=== PATIENT | female | born 1975 | race Caucasian/White ===

== ENCOUNTER → 2017-07-23 07:21 | Outpatient (CLI) | payer OTHER, SELFPAY | PROVIDERS: Family Provider Family Medicine; PCP Family Medicine; Visit Provider Surgery | DX: R94.6 Abnormal results of thyroid function studies (principal) | CPT/HCPCS: 36415; 84443 ==

== ENCOUNTER → 2017-07-24 07:18 | Outpatient (CLI) | payer OTHER, SELFPAY | PROVIDERS: Family Provider Family Medicine; PCP Family Medicine; Visit Provider Surgery | DX: R94.6 Abnormal results of thyroid function studies (principal) | CPT/HCPCS: 36415; 84443 ==

== ENCOUNTER → 2017-08-19 07:08 | Outpatient (CLI) | payer OTHER, SELFPAY | PROVIDERS: Family Provider Family Medicine; PCP Family Medicine; Visit Provider Surgery | DX: R94.6 Abnormal results of thyroid function studies (principal) | CPT/HCPCS: 36415; 84443 ==

== ENCOUNTER → 2017-10-08 16:03 | Outpatient (CLI) | payer OTHER, SELFPAY ==
[2017-10-08 18:31] LABS: Thyroid Stim Hormone (TSH) 1.88 uIU/mL (0.358-3.74)
== END ==
PROVIDERS: Family Provider Family Medicine; PCP Family Medicine; Visit Provider Surgery
DX: E89.0 Postprocedural hypothyroidism (principal); E03.9 Hypothyroidism, unspecified
CPT/HCPCS: 36415; 84443

== ENCOUNTER → 2017-12-12 10:25 | Outpatient (CLI) | payer OTHER, SELFPAY ==
[2017-12-12 12:33] LABS: Anion Gap 5 (5-15); BUN 11 mg/dL (7-18); BUN/Creat Ratio 12.4 RATIO (10-20); Chloride 107 mmol/L (98-107); Creatinine, Serum 0.89 mg/dL (0.55-1.02); EST Glomerular Filtration Rate 74 mL/min (>60); Est Glom Filt Rate - Afr Amer 89 mL/min (>60); Free T3 2.9 pg/mL (2.18-3.98); Glucose 94 mg/dL (74-106); Potassium 4.3 mmol/L (3.5-5.1); Sodium Level 140 mmol/L (136-145); T4 Free Direct 1.34 ng/dL (0.76-1.46); Thyroid Stim Hormone (TSH) 3.62 uIU/mL (0.358-3.74)
[2017-12-13 09:53] LABS: Vitamin D,25 Hydroxy 21.5 ng/mL (29.95-100.01)
== END ==
PROVIDERS: Family Provider Family Medicine; PCP Family Medicine; Visit Provider Family Medicine
DX: E55.9 Vitamin D deficiency, unspecified (principal); E04.1 Nontoxic single thyroid nodule; Z13.1 Encounter for screening for diabetes mellitus
CPT/HCPCS: 36415; 80048; 82306; 84439; 84443; 84481

== ENCOUNTER → 2018-06-04 07:04 | Outpatient (CLI) | payer OTHER, SELFPAY ==
[2018-06-04 11:10] LABS: Vitamin D,25 Hydroxy 43.6 ng/mL (29.95-100.01)
[2018-06-04 11:13] LABS: Thyroid Stim Hormone (TSH) 0.71 uIU/mL (0.358-3.74)
--- OUTSIDE RECORDS SUMMARY | 2018-07-21 02:18 | XMS RPT_ITS ---
:1975 Author Organization OHIP Care Team Providers Name Role Phone Grover Albarado Attending Unavailable Inderjitsibley, Grover Referring Unavailable [facility] [place], [facility] Unavailable Cebul, Spencer Attending Unavailable Inderjitabdifata[facility], [facility] Unavailable Cebul, Spencer Attending Unavailable Cebul, Spencer Referring Unavailable [place], [facility] Unavailable Cebul, Spencer Attending Unavailable Ransibley, Christopher Referring Unavailable [facility] [place], [facility] Unavailable [place] Cebul, Spencer Attending Unavailable Cebul, Spencer Referring Unavailable Cebul, Spencer Attending Unavailable Cebul, Spencer Referring Unavailable [place], [facility] Unavailable Inderjitsibley, Grover Attending Unavailable [place], [facility] Unavailable PROBLEMS PROBLEMS DATE TYPE CONDITION / CODE ATTENDING STATUS SOURCE 07/04/2018 Unknown E03.9 - Elijah Albarado Hypothyroidism, [facility] unspecified / Hospital E03.9(ICD-10) Repository 08/19/2017 Unknown R94.6 - Abnormal Spencer Hayes Active [place] results of thyroid Community function studies / Hospital R94.6(ICD-10) Repository 07/29/2017 Unknown E89.0 - CebuSpencer montilla Active [place] [facility]procedural [facility] hypothyroidism / Hospital E89.0(ICD-10) Repository PROCEDURES PROCEDURES No Procedure Records FoundRESULTS RESULTS VITAMIN D,25 HYDROXY Collected: 06/04/2018 Status: F Source: [place] 7:09 AM [facility] TYPE CODE TESTS RESULT OUT OF RANGE REFERENCE UNITS LAB L506.1000 29.95-100.01 ng/mL Normal Vitamin D 43.6 25-OH Result Comment: Vitamin D 25(OH) Status Range Deficiency <20 ng/mL (50nmol/L) Insuffciency 20 - 30 ng/mL (50 - 75 nmol/L) Sufficiency 30 - 100 ng/mL (75 - 250 nmol/L) Toxicity >100 ng/mL (>250 nmol/L) Performed By: #### L506.1000, L501.9520 #### [place] [facility] GoodmanNiru Ke[address] [place], [address] THYROID STIM HORMONE Collected: 06/04/2018 Status: F Source: [place] (TSH) 7:09 AM [facility] TYPE CODE TESTS RESULT OUT OF RANGE REFERENCE UNITS LAB L501.9520 0.358-3.74 uIU/mL Normal TSH 0.71 Performed By: #### L506.1000, L501.9520 #### [facility] [address] [place], [address] BASIC METABOLIC Collected: 2017 Status: F Source: [place] PROFILE (BMP) 10:26 AM [facility] Order Comment: Order Date: 12/12/17 Order Info: 0667-1 - BMP Order Info: 3051-0 - T3F Order Info: 3016-3 - TSH Order Info: 3024-7 - T4F TYPE CODE TESTS RESULT OUT OF RANGE REFERENCE UNITS LAB L501.0100 74-106 mg/dL Normal GLU 94 Result Comment: Please note revised GLUCOSE reference range effective 2017. LAB L501.1000 7-18 mg/dL Normal BUN 11 LAB L501.1100 0.55-1.02 mg/dL Normal CREAT,SERUM 0.89 Result Comment: The validity of the calculated GFR AND GFRAA in patients over 70 years has not been determined. Clinical correlation is essential. LAB L501.1110 >60 mL/min Normal EST GFR 74 Result Comment: Non- GFR Calc LAB L501.1115 >60 mL/min Normal EST GFR - AA 89 Result Comment: GFR Calc LAB L501.1300 10-20 RATIO Normal BUN/CRE 12.4 LAB L501.2200 8.5-10.1 mg/dL CA Normal 9.0 LAB L501.5300 136-145 mmol/L NA Normal 140 LAB L501.5600 3.5-5.1 mmol/L K Normal 4.3 LAB L501.5900 98-107 mmol/L CL Normal 107 LAB L501.6100 21.0-32.0 mmol/L Normal CO2 28.0 LAB L501.6200 5-15 Normal GAP 5 Performed By: #### L500.2500, L501.48608, L501.9520, L506.0400, L506.1000 #### [facility] [address] [place], [address] FREE T3 Collected: 2017 Status: F Source: [place] 10:26 AM [facility] Order Comment: Order Date: 12/12/17 Order Info: 666-06 - BMP Order Info: 3051-0 - T3F Order Info: 3016-3 - TSH Order Info: 3024-7 - T4F TYPE CODE TESTS RESULT OUT OF RANGE REFERENCE UNITS LAB L501.66677 2.18-3.98 pg/mL Normal FREE T3 2.9 Performed By: #### L500.2500, L501.12287, L501.9520, L506.0400, L506.1000 #### [facility] [address] [place], [address] THYROID STIM HORMONE Collected: 2017 Status: F Source: [place] (TSH) 10:26 AM [facility] Order Comment: Order Date: 12/12/17 Order Info: 666-06 - BMP Order Info: 3051-0 - T3F Order Info: 301-3 - TSH Order Info: 3024-7 - T4F TYPE CODE TESTS RESULT OUT OF RANGE REFERENCE UNITS LAB L501.9520 0.358-3.74 uIU/mL Normal TSH 3.62 Performed By: #### L500.2500, L501.14657, L501.9520, L506.0400, L506.1000 #### [facility] [address] [place], [place], [address] T4 FREE DIRECT Collected: 2017 Status: F Source: [place] 10:26 AM [facility] Order Comment: Order Date: 12/12/17 Order Info: 666-06 - BMP Order Info: 3051-0 - T3F Order Info: 3016-3 - TSH Order Info: 3024-7 - T4F TYPE CODE TESTS RESULT OUT OF RANGE REFERENCE UNITS LAB L506.0400 0.76-1.46 ng/dL Normal T4 FREE 1.34 DIRECT Performed By: #### L500.2500, L501.90371, L501.9520, L506.0400, L506.1000 #### [facility] [address] [place], [address] VITAMIN D,25 HYDROXY Collected: 2017 Status: F Source: [place] 10:26 AM [facility] Order Comment: Order Date: 12/12/17 Order Info: 31381-4 - VITD25 TYPE CODE TESTS RESULT OUT OF REFERENCE UNITS RANGE LAB L506.1000 29.95-100.01 ng/mL Low Vitamin D 21.5 25-OH Result Comment: Vitamin D 25(OH) Status Range Deficiency <20 ng/mL (50nmol/L) Insuffciency 20 - 30 ng/mL (50 - 75 nmol/L) Sufficiency 30 - 100 ng/mL (75 - 250 nmol/L) Toxicity >100 ng/mL (>250 nmol/L) Performed By: #### L500.2500, L501.84304, L501.9520, L506.0400, L506.1000 #### [facility] [address] [place], [place], [address] THYROID STIM HORMONE Collected: 10/08/2017 Status: F Source: [place] (TSH) 4:07 PM [facility] TYPE CODE TESTS RESULT OUT OF RANGE REFERENCE UNITS LAB L501.9520 0.358-3.74 uIU/mL Normal TSH 1.88 Performed By: #### L501.9520 #### [facility] [address] [place], [address] THYROID STIM HORMONE Collected: 08/19/2017 Status: F Source: [place] (TSH) 7:19 AM [facility] TYPE CODE TESTS RESULT OUT OF RANGE REFERENCE UNITS LAB L501.9520 0.358-3.74 uIU/mL High TSH 14.00 Performed By: #### L501.9520 #### [facility] [address] [place], [place], [address] SURGERY VISIT REPORT Observed: 07/29/2017 Status: F Source: [place] 3:47 PM [facility] [facility] [address] [place] [address] OFFICE VISIT Date of Service: 07/29/17 MR#: [id number] Acct: [id number] Name: FLAKITA THOMAS Rep #: [id number] : 1975 Provider: Spencer Hayes MD Age/Sex: 41/F Location: [facility] Status: Signed Intake Intake Visit Reasons: total thyroid 12-10 Chief Complaint: total thyroid 12-10 Edi Developer Required: No Is patient in pain?: No Allergies No Known Allergies Allergy (Verified 07/29/17 15:42) Medications Cetirizine HCl [Zyrtec] 10 mg PO DAILY 05/30/17 [History Confirmed 07/29/17] Fluticasone/Salmeterol [Advair Hfa 115-21 Mcg Inhaler] 2 puff INHALATION PRN PRN 05/30/17 [History Confirmed 07/29/17] Omeprazole 40 mg PO QHS 05/30/17 [History Confirmed 07/29/17] Hydrocodone Bitart/Apap 5-325 [[place] 5MG-325MG] 1 tab PO Q4H PRN PRN #6 tab 06/10/17 [Rx Confirmed 07/29/17] levothyroxine 100 mcg capsule 100 mcg PO QDAY #30 cap 07/24/17 [Rx Confirmed 07/29/17] Is last menstrual period known: No Post menopausal: No Patient : No PFSH Medical History Esophageal reflux (Acute) Nontoxic uninodular goiter (Acute) Multinodular thyroid (Acute) GERD (gastroesophageal reflux disease) (Acute) Seasonal allergies (Acute) Surgical History S/P thyroidectomy (Acute) S/P fine needle aspiration (Acute) S/P hysterectomy (Acute) Family History Father CAD (coronary artery disease) Arthritis Social History Smoking Status: Former smoker alcohol intake: current substance use type: does not use what type of physical activity do you participate in: none seatbelt use: always HPI HPI HPI: FLAKITA THOMAS, is a 41 F who presents to the office today for surgical follow-up status post thyroidectomy FLAKITA THOMAS, is a 41 F who presents to the office today for surgical follow-up status post total thyroidectomy that I performed for her on June 10, 2017. Preoperative diagnosis was symptomatic multinodular thyroid. Final pathology shows total thyroid consistent with chronic lymphocytic thyroiditis. Benign cystic follicular lesion with a fibrous wall. This was 2.5 cm in dimension. This was in the right lobe. There is additional adenomatoid nodule in the right lobe with chronic inflammation. On July 24, 2017 a TSH level was obtained at the [facility]. It was 33.2. Patient is starting to feel fatigued. She was contacted at that time and she was asked to increase her levothyroxine from 75 mcg daily to 100 mcg daily. A TSH recheck will be performed at 4 weeks. Exam Neck Other: Neck is supple, slight residual induration, incision is healing well Assessment AND Plan 1. S/P thyroidectomy E89.0 Plan The patient will recheck her TSH in 4 weeks. If there is ongoing difficulty with replacement then I will consider endocrinology referral. This point clinically however other than the surgically induced hypothyroidism she is doing well. I appreciate the opportunity of assisting with her surgical care. Cc: Dr. Per Hayes M.D., F.A.C.S. Coding Level of Care Code Global Post Op Diagnoses S/P thyroidectomy E89.0 07/29/17 1547 <Electronically signed by Spencer Hayes MD> Date [facility] Signature: Date (if applicable) CC: Grover Albarado MD THYROID STIM HORMONE Collected: 07/24/2017 Status: F Source: [place] (TSH) 7:24 AM [facility] TYPE CODE TESTS RESULT OUT OF RANGE REFERENCE UNITS LAB L501.9520 0.358-3.74 uIU/mL High TSH 33.20 Performed By: #### L501.9520 #### [facility] [address] [place], [address] THYROID STIM HORMONE Collected: 07/23/2017 Status: F Source: [place] (TSH) 7:30 AM [facility] REPOSITORY TYPE CODE TESTS RESULT OUT OF RANGE REFERENCE UNITS LAB L501.9520 0.358-3.74 uIU/mL High TSH 34.30 Performed By: #### L501.9520 #### [facility] [address] [place], [address] ALLERGIES ALLERGIES DATE TYPE / CODE NAME / CODE REACTION SEVERITY SOURCE 07/29/2017 Drug No Known Unknown [facility] Allergy/4160 Allergies/F00 Hospital 27845(SNOMED 0564883(RXNOR Repository CT) M) ENCOUNTERS ENCOUNTERS ADMIT/DISCHARGE ACCOUNT ADMITTING ENCOUNTER LOCATION SOURCE NUMBER CLASS 06/04/2018 [id number] Ambulatory [place] [facility] ing:MTLAB Repository 2017 [id number] Ambulatory [place] 9 [facility] ing:MFPLAB Repository 10/08/2017 [id number] Ambulatory [place] 9 [facility] ing:MTLAB Repository 08/19/2017 [id number] Ambulatory [place] 3 [facility] ing:MTLAB Repository 07/29/2017/ [id number] Ambulatory BMSBuilding:B [place] 8 7 [facility] Repository 07/24/2017 [id number] Ambulatory [place] 7 [facility] ing:MTLAB Repository 07/23/2017 [id number] Ambulatory [place] 0 [facility] ing:MTLAB Repository PAYERS PAYERS ENCOUNTER GUARANTOR PAYER SUBSCRIBER SOURCE 06/04/2018 FLAKITA Richards MARIELA [place] [id number] Insurance:[facility] [address]Ccsomt [id number] [place] Number: Repository [address]Sig: [phone] [id number] [phone] () Date:6197-43-42GJ [facility] [id number], [place] [address]BA: 06/04/2018 Secondary NOT GIVENUNK [place] Insurance:SELF PAY [facility] Number: Effective Repository Date:2018-06-04 2017 FLAKITA [place]7036 Insurance:[employer] HL[employer] CarpenterDOB: Community [facility] [address] [place] [address] [id number] [place] Number: Repository [id number]: [phone] [id number] [phone] (HP) Date:9444-95-80VH [facility] 089356PMJFFFH, [place] [address]CT: 2017 Secondary NOT GIVENUNK [place] Insurance:SELF PAY [facility] Number: Effective Repository Date:2017 10/08/2017 [place] [id number] Insurance:[employer] HL[employer] CarpenterDOB: Community [facility] [address] [place] [address] [id number] [place] Number: Repository [address]Wpp: 330 [id number] [phone] (HP) Date:3058-78-08WX [facility] 127506ZMDNUSQ, [place] [address]RZ: 10/08/2017 Secondary NOT GIVENUNK [place] Insurance:SELF PAY [facility] Number: Effective Repository Date:2017-10-08 08/19/2017 [place] [id number] Insurance:[employer] HL[employer] CarpenterDOB: Community [facility] [address] [place] [address] [id number] [facility] [place] Number: Repository [id number]: 330 [id number] [phone] (HP) Date:2038-20-03XA [facility] 534756VIDQYIF, [place] [address]RM: 08/19/2017 Secondary NOT GIVENUNK [place] Insurance:SELF PAY [facility] Number: Effective Repository Date:2017-08-19 07/29/2017 FLA[place]ITA [place] [id number] Insurance:[employer] HL[employer] CarpenterDOB: [facility] [address] [place] [address] [id number] [place] Number: Repository [address]Kai: 330 [id number] [phone] () Date:8191-50-28CH [facility] [id number], [place] [address]XF: 07/29/2017 Secondary NOT GIVENUNK [place] Insurance:SELF PAY [facility] Number: Effective Repository Date:2017-07-24 07/24/2017 [facility] Mariela [place] [id number] Insurance:UNITED TH DrummondsDOB: Community [facility] [id number] [id number] Number: Repository [id number]: 330 [id number] [phone] () Date:7423-96-48HM [facility] 501075KUVZ[place], [place] [address]GO: 07/24/2017 Secondary NOT GIVENUNK [place] Insurance:SELF PAY [facility] Number: Effective Repository Date:2017-07-24 07/23/2017 [facility]7036 Insurance:UNITED TH DrummondsDOB: Community [facility] [id number] [id number] Number: Repository [id number]: [phone] [id number] [phone] () Date:7023-66-54[address]UPPZ[address], [place] [address]VO: 07/23/2017 Secondary NOT GIVENUNK [place] Insurance:SELF PAY [facility] Number: Effective Repository Date:2017-07-23
== END ==
PROVIDERS: Family Provider Family Medicine; PCP Family Medicine; Referring Provider Family Medicine; Visit Provider Family Medicine
DX: E03.9 Hypothyroidism, unspecified (principal); E55.9 Vitamin D deficiency, unspecified
CPT/HCPCS: 36415; 82306; 84443

== ENCOUNTER → 2019-01-13 07:08 | Outpatient (CLI) | payer BC, SELFPAY ==
[2019-01-13 10:24] LABS: Vitamin D,25 Hydroxy 50.1 ng/mL (29.95-100.01)
[2019-01-13 10:27] LABS: Anion Gap 3 (5-15); BUN 14 mg/dL (7-18); BUN/Creat Ratio 17.7 RATIO (10-20); Calcium,Total 9.2 mg/dL (8.5-10.1); Chloride 105 mmol/L (98-107); Cholesterol 184 mg/dL (200); Creatinine, Serum 0.79 mg/dL (0.55-1.02); EST Glomerular Filtration Rate 83 mL/min (>60); Est Glom Filt Rate - Afr Amer 101 mL/min (>60); Glucose 92 mg/dL (74-106); High Density Lipoprotein 54 mg/dL; Sodium Level 138 mmol/L (136-145); T4 Free Direct 1.43 ng/dL (0.76-1.46); Thyroid Stim Hormone (TSH) 0.24 uIU/mL (0.358-3.74); Triglycerides 87 mg/dL; Very Low Density Lipoprotein 17 mg/dL (5-40)
== END ==
PROVIDERS: Family Provider Family Medicine; PCP Family Medicine; Referring Provider Family Medicine; Visit Provider Family Medicine
DX: Z13.220 Encounter for screening for lipoid disorders (principal); Z13.1 Encounter for screening for diabetes mellitus; E03.9 Hypothyroidism, unspecified; E55.9 Vitamin D deficiency, unspecified
CPT/HCPCS: 36415; 80048; 80061; 82306; 84439; 84443

== ENCOUNTER → 2019-05-25 16:34 | Outpatient (CLI) | payer BC, SELFPAY ==
[2019-05-25 18:46] LABS: T4 Free Direct 1.22 ng/dL (0.76-1.46); Thyroid Stim Hormone (TSH) 0.95 uIU/mL (0.358-3.74)
== END ==
PROVIDERS: Family Provider Family Medicine; PCP Family Medicine; Referring Provider Family Medicine; Visit Provider Family Medicine
DX: E03.9 Hypothyroidism, unspecified (principal)
CPT/HCPCS: 36415; 84439; 84443

== ENCOUNTER → 2019-06-05 07:25 | Outpatient (CLI) | payer BC, SELFPAY ==
--- NOTE | 2019-06-05 06:55 | BI_ITS ---
MAMMOGRAPHY - BILATERAL SCREENING REASON FOR EXAM: Female, 43 years old. Routine annual screening examination. PERTINENT HISTORY: Non-contributory. TECHNIQUE: Digital bilateral breast branden (3D mammographic acquisition) in the CC and MLO projections. 2-D mediolateral oblique (MLO) and craniocaudad (CC) views of both breasts were obtained. CAD: Full Field Digital Mammography with Computer Added Detection was performed. COMPARISON: Comparison is made with prior study dated January 24, 2016. FINDINGS: Breast Composition: The breasts are almost entirely fatty. There are no dominant masses or suspicious calcifications. No other significant abnormalities are identified. There has been no significant change since the prior study. BI/SCREEN MAMM (CAD) W/BRANDEN BILAT IMPRESSION: Stable bilateral screening mammogram. Yearly follow-up mammogram recommended. (A) ASSESSMENT CATEGORY: BIRADS Category 1: Negative. A letter regarding these results will be sent to the patient by the facility within 30 days. Approximately 10% of breast cancers are not detected by mammography. A normal mammogram should not delay biopsy of a clinically suspicious abnormality. [id number] Electronically Signed: Zev Evans, at 8:59 EST , Service support ,
== END ==
PROVIDERS: Family Provider Family Medicine; PCP Family Medicine; Referring Provider Obstetrics & Gynecology; Visit Provider Obstetrics & Gynecology
DX: Z12.31 Encounter for screening mammogram for malignant neoplasm of breast (principal)
CPT/HCPCS: 77063; 77067

== ENCOUNTER → 2020-05-31 14:58 | Outpatient (CLI) | payer BC, SELFPAY ==
[2020-05-31 18:40] LABS: Anion Gap 5 (5-15); BUN 17 mg/dL (7-18); BUN/Creat Ratio 19.1 RATIO (10-20); Calcium,Total 9.2 mg/dL (8.5-10.1); Chloride 107 mmol/L (98-107); Creatinine, Serum 0.89 mg/dL (0.55-1.02); EST Glomerular Filtration Rate 72 mL/min (>60); Est Glom Filt Rate - Afr Amer 87 mL/min (>60); Glucose 95 mg/dL (74-106); Potassium 4.3 mmol/L (3.5-5.1); Sodium Level 141 mmol/L (136-145); T4 Free Direct 1.43 ng/dL (0.76-1.46); Thyroid Stim Hormone (TSH) 1.05 uIU/mL (0.358-3.74)
== END ==
PROVIDERS: PCP Family Medicine; Visit Provider Family Medicine
DX: K21.9 Gastro-esophageal reflux disease without esophagitis (principal); E03.9 Hypothyroidism, unspecified
CPT/HCPCS: 36415; 80048; 84439; 84443

== ENCOUNTER → 2020-08-25 16:07 | Outpatient (CLI) | payer BC, SELFPAY ==
[2020-08-30 03:06] LABS: Chlamydia By Nucleic Acid AMP Negative (Negative)
[2020-08-30 14:55] LABS: Gonococcus By Nucleic Acid AMP Negative (Negative)
[2020-08-31 11:07] LABS: HPV APTIMA, High Risk Negative (Negative); HPV Reflexed? YES, CHARGE PATIENT
== END ==
PROVIDERS: PCP Family Medicine; Visit Provider Obstetrics & Gynecology
DX: Z12.4 Encounter for screening for malignant neoplasm of cervix (principal); Z11.3 Encounter for screening for infections with a predominantly sexual mode of transmission
CPT/HCPCS: 87491; 87591; 87624; 88175; G0145

== ENCOUNTER → 2020-09-13 07:05 | Outpatient (CLI) | payer BC, SELFPAY ==
--- NOTE | 2020-09-13 07:07 | BI_ITS ---
MAMMOGRAPHY - BILATERAL SCREENING REASON FOR EXAM: Female, 44 years old. Routine annual screening examination. PERTINENT HISTORY: Non-contributory. TECHNIQUE: Digital bilateral breast branden (3D mammographic acquisition) in the CC and MLO projections. 2-D mediolateral oblique (MLO) and craniocaudad (CC) views of both breasts were obtained. CAD: Full Field Digital Mammography with Computer Added Detection was performed. COMPARISON: Comparison is made with prior study dated 06/05/2019 and 01/24/2016. FINDINGS: Breast Composition: The breasts are almost entirely fatty. There are no dominant masses or suspicious calcifications. No other significant abnormalities are identified. There has been no significant change since the prior study. BI/SCRN MAMM (CAD)W/BRANDEN BILAT IMPRESSION: Stable bilateral screening mammogram. Yearly follow-up mammogram recommended. (A) ASSESSMENT CATEGORY: BIRADS Category 1: Negative. A letter regarding these results will be sent to the patient by the facility within 30 days. Approximately 10% of breast cancers are not detected by mammography. A normal mammogram should not delay biopsy of a clinically suspicious abnormality. [id number] Electronically Signed: Zev Evans MD at 8:06 EDT , Service support ,
== END ==
PROVIDERS: PCP Family Medicine; Referring Provider Obstetrics & Gynecology; Visit Provider Obstetrics & Gynecology
DX: Z12.31 Encounter for screening mammogram for malignant neoplasm of breast (principal)
CPT/HCPCS: 77063; 77067

== ENCOUNTER → 2021-06-01 14:20 | Outpatient (CLI) | payer BC, SELFPAY ==
[2021-06-01 17:30] LABS: Hematocrit 43.9 % (37-47); Hemoglobin 14.5 g/dL (12.0-15.0); Mean Corpuscular Hgb 28.6 pg (27.0-32.0); Mean Corpuscular Volume 86.6 fL (81-99); Mean Platelet Vol. 10.6 fl (6.2-12.0); Platelet Count 365 K/mm3 (150-450); RBC Distribution Width CV 12.2 % (11.6-14.6); RBC Distribution Width SD 38.8 fl (35.1-43.9); Red Blood Count 5.07 M/mm3 (4.2-5.4); White Blood Count 7.7 K/mm3 (4.4-11.0)
[2021-06-01 17:46] LABS: Vitamin B12 740 pg/mL (211-911); Vitamin D,25 Hydroxy 38.2 ng/mL
[2021-06-01 17:55] LABS: AST(SGOT) 23 U/L (15-37); Alanine Aminotransfer ALT/SGPT 52 U/L (13-56); Albumin, Serum 3.8 g/dL (3.2-5.0); Alkaline Phosphatase 113 U/L (45-117); BUN 17 mg/dL (7-18); BUN/Creat Ratio 20.5 RATIO (10-20); Calcium,Total 9.6 mg/dL (8.5-10.1); Creatinine, Serum 0.83 mg/dL (0.55-1.02); EST Glomerular Filtration Rate 78 mL/min (>60); Est Glom Filt Rate - Afr Amer 95 mL/min (>60); Globulin 3.7 g/dL (2.2-4.2); Glucose 82 mg/dL (74-106); Potassium 3.8 mmol/L (3.5-5.1); Protein, Total 7.5 g/dL (6.4-8.2); Sodium Level 141 mmol/L (136-145)
[2021-06-01 17:56] LABS: Anion Gap 7 (5-15); Chloride 107 mmol/L (98-107); T4 Free Direct 1.44 ng/dL (0.76-1.46); Thyroid Stim Hormone (TSH) 0.66 uIU/mL (0.358-3.74)
== END ==
PROVIDERS: PCP Family Medicine; Referring Provider Family Medicine; Visit Provider Family Medicine
DX: R53.83 Other fatigue (principal); E03.9 Hypothyroidism, unspecified
CPT/HCPCS: 36415; 80053; 82306; 82607; 84439; 84443; 85027

== ENCOUNTER → 2022-02-20 | Outpatient (CLI) | payer OTHER, SELFPAY ==
--- NOTE | 2022-02-20 07:13 | BI_ITS ---
MAMMOGRAPHY - BILATERAL SCREENING REASON FOR EXAM: Female, 46 years old. Routine annual screening examination. PERTINENT HISTORY: Non-contributory. TECHNIQUE: Digital bilateral breast branden (3D mammographic acquisition) in the CC and MLO projections. 2-D mediolateral oblique (MLO) and craniocaudad (CC) views of both breasts were obtained. CAD: Full Field Digital Mammography with Computer Added Detection was performed. COMPARISON: Comparison is made with prior study of 09/13/2020 and 06/05/2019. FINDINGS: Breast Composition: The breasts are almost entirely fatty. There are no dominant masses or suspicious calcifications. No other significant abnormalities are identified. There has been no significant change since the prior study. BI/SCRN MAMM (CAD)W/BRANDEN BILAT IMPRESSION: Stable bilateral screening mammogram. Yearly follow-up mammogram recommended. (A) ASSESSMENT CATEGORY: BIRADS Category 1: Negative. A letter regarding these results will be sent to the patient by the facility within 30 days. Approximately 10% of breast cancers are not detected by mammography. A normal mammogram should not delay biopsy of a clinically suspicious abnormality. [id number] Electronically Signed: Zev Evans MD at 8:28 EDT ,
== END | disposition home or self-care (01) ==
LOC: OPBI 07:10
PROVIDERS: PCP Family Medicine; Referring Provider Family Medicine; Visit Provider Family Medicine
DX: Z12.31 Encounter for screening mammogram for malignant neoplasm of breast (principal)
CPT/HCPCS: 77063; 77067

== ENCOUNTER → 2022-06-05 | Outpatient (CLI) | payer OTHER, SELFPAY ==
[2022-06-05 10:33] LABS: Vitamin D,25 Hydroxy 46.8 ng/mL
[2022-06-05 14:17] LABS: Anion Gap 9 (5-15); BUN 12 mg/dL (7-18); BUN/Creat Ratio 14.1 RATIO (10-20); Calcium,Total 9.4 mg/dL (8.5-10.1); Chloride 104 mmol/L (98-107); Cholesterol 218 mg/dL (200); Creatinine, Serum 0.85 mg/dL (0.55-1.02); EST Glomerular Filtration Rate 76 mL/min (>60); Est Glom Filt Rate - Afr Amer 92 mL/min (>60); Glucose 100 mg/dL (74-106); High Density Lipoprotein 51 mg/dL; Potassium 4.4 mmol/L (3.5-5.1); Sodium Level 141 mmol/L (136-145); T4 Free Direct 1.45 ng/dL (0.76-1.46); Thyroid Stim Hormone (TSH) 0.65 uIU/mL (0.358-3.74); Triglycerides 114 mg/dL; Very Low Density Lipoprotein 23 mg/dL (5-40)
== END | disposition home or self-care (01) ==
LOC: MFPLAB 09:18
PROVIDERS: PCP Family Medicine; Visit Provider Family Medicine
DX: Z13.220 Encounter for screening for lipoid disorders (principal); Z13.1 Encounter for screening for diabetes mellitus; E03.9 Hypothyroidism, unspecified; E55.9 Vitamin D deficiency, unspecified
CPT/HCPCS: 36415; 80048; 80061; 82306; 84439; 84443

== ENCOUNTER → 2022-09-12 | Outpatient (CLI) | payer OTHER, SELFPAY ==
[2022-09-12 16:59] LABS: HIV - WCH Non-Reactive (Nonreactive); Hepatitis C Antibody Non-Reactive (Nonreactive); Syphilis Antibodies Non-reactive
[2022-09-14 08:36] LABS: HSV 2 IgG < 0.91 index (0.00-0.90)
[2022-09-14 22:07] LABS: Chlamydia By Nucleic Acid AMP Negative (Negative)
[2022-09-15 08:55] LABS: Gonococcus By Nucleic Acid AMP Negative (Negative)
== END | disposition home or self-care (01) ==
PROVIDERS: PCP Family Medicine; Referring Provider Nurse Practitioner Women's Health; Visit Provider Nurse Practitioner Women's Health
DX: Z20.2 Contact with and (suspected) exposure to infections with a predominantly sexual mode of transmission (principal)
CPT/HCPCS: 36415; 86695; 86696; 86703; 86780; 86803; 87491; 87591

== ENCOUNTER → 2023-04-02 | Outpatient (CLI) | payer OTHER, SELFPAY ==
--- NOTE | 2023-04-02 07:21 | BI_ITS ---
MAMMOGRAPHY - BILATERAL SCREENING REASON FOR EXAM: Female, 47 years old. Routine annual screening examination. PERTINENT HISTORY: Non-contributory. TECHNIQUE: Digital bilateral breast branden (3D mammographic acquisition) in the CC and MLO projections. 2-D mediolateral oblique (MLO) and craniocaudad (CC) views of both breasts were obtained. CAD: Full Field Digital Mammography with Computer Added Detection was performed. COMPARISON: Comparison is made with prior study dated February 20, 2022 and September 13, 2020. FINDINGS: Breast Composition: The breasts are almost entirely fatty. There are no dominant masses or suspicious calcifications. No other significant abnormalities are identified. There has been no significant change since the prior study. BI/SCRN MAMM (CAD)W/BRANDEN BILAT IMPRESSION: Stable bilateral screening mammogram. Yearly follow-up mammogram recommended. (A) ASSESSMENT CATEGORY: BIRADS Category 1: Negative. A letter regarding these results will be sent to the patient by the facility within 30 days. Approximately 10% of breast cancers are not detected by mammography. A normal mammogram should not delay biopsy of a clinically suspicious abnormality. [id number] Electronically Signed: Zev Evans MD at 14:46 EDT ,
== END | disposition home or self-care (01) ==
LOC: OPBI 07:20
PROVIDERS: PCP Family Medicine; Referring Provider Nurse Practitioner Women's Health; Visit Provider Nurse Practitioner Women's Health
DX: Z12.31 Encounter for screening mammogram for malignant neoplasm of breast (principal)
CPT/HCPCS: 77063; 77067

== ENCOUNTER → 2023-06-29 | Outpatient (CLI) | payer BC, SELFPAY ==
--- OUTSIDE RECORDS SUMMARY | 2023-06-29 08:45 | XMS RPT_ITS | CCD ---
Author Name Unknown Address [address] [place] [address] Organization [facility] Care Team Providers Care Presser All Around Name Role Phone Spencer Hayes MD Unavailable Medications Completed/Discontinued Medications Medication Drug Class(es) Dates Sig (Normalized) Sig (Original) cetirizine hydrochloride 10 mg oral tablet (5 sources) Histamine-1 Receptor Antagonist ZYRTEC ALLERGY 10 MG TABS One tablet by mouth as needed CETIRIZINE HCL [id number] Fritz Zhong fexofenadine / Pseudoephedrine (5 sources) alpha-Adrenergic Agonist, Histamine-1 Receptor Antagonist take 1 tablet by mouth once daily KAVITHA-D ALLERGY & CONGESTION 60-120 MG [id number] One tablet by mouth daily FEXOFENADINE-PSEUD OEPHEDRINE [id number] Fritz Zhong Problems Problem Classification Problem Date Documented Date Episodic/Chronic Esophageal disorders (5 sources) Gastroesophageal reflux disease; Translations: [Gastro-esophageal reflux disease without esophagitis] 09-03-2014 Chronic Thyroid disorders (10 sources) Multinodular goiter; Translations: [Non-toxic uninodular goiter] Onset: 03-18-2017 03-18-2017 Chronic Results Test Name Value Interpretation Reference Range Facil ity Vital Signs Date Time Vital Sign Value Performing Clinician Facility 03-18-2017 08:11-0400 BMI (Body Mass Index) 3.67 kg/m2 Spencer Hayes MD [facility] Work Phone: 03-18-2017 08:11-0400 Body Temperature 97.9 [degF] Spencer Hayes MD [facility] Work Phone: 03-18-2017 08:11-0400 BP Diastolic 93 mm[Hg] Spencer Hayes MD [facility] Work Phone: 03-18-2017 08:11-0400 BP Systolic 128 mm[Hg] Spencer Hayes MD [facility] Work Phone: 03-18-2017 08:11-0400 Height 505.97 cm Spencer Hayes MD [facility] Work Phone: 03-18-2017 08:11-0400 Pulse (Heart Rate) 77 /min Spencer Hayes MD [facility] Work Phone: 03-18-2017 08:11-0400 Respiratory Rate 20 /min Spencer Hayes MD [facility] Work Phone: 03-18-2017 08:11-0400 Weight 93.9 kg Spencer Hayes MD [facility] Work Phone: 03-18-2017 08:11-0400 Weight 93.89 kg Spencer Hayes MD [facility] Work Phone: 09-03-2014 09:090400 BSA (Body Surface Area) 2.78 m2 Spencer Hayes MD [facility] Work Phone: 09-03-2014 09:090400 Height 505.97 cm Spencer Hayes MD [facility] Work Phone: Procedures Date Procedure Procedure Detail Performing Clinician Start: 03-27-2017 End: 03-27-2017 Fine needle aspiration with imaging guidance Spencer Hayes MD Work Phone: Start: 03-27-2017 End: 03-27-2017 Fna w/image Spencer Hayes MD Work Phone: Plan of Treatment Date Care Activity Detail Author Start: 04-03-2017 End: 04-03-2017 Appointment Appointment [facility] Work Phone: Start: 03-27-2017 End: 03-27-2017 Appointment Appointment [facility] Work Phone: Start: 03-18-2017 End: 03-18-2017 Appointment Appointment [facility] Work Phone: [facility] Work Phone: Additional Source Comments FOR RECORDS PERTAINING TO PATIENTS WHO ARE OR HAVE BEEN ENROLLED IN A CHEMICAL DEPENDENCY/SUBSTANCEABUSE PROGRAM, SOME INFORMATION MAY BE OMITTED. This clinical summary was aggregated from multiple sources. Caution should be exercised in using it in the provision of clinical care. This summary normalizes information from multiple sources, and as a consequence, information in this document may materially change the coding, format and clinical context of patient data. In addition, data may be omitted in some cases. CLINICAL DECISIONS SHOULD BE BASED ON THE PRIMARY CLINICAL RECORDS. [facility]. provides no warranty or guarantee of the accuracy or completeness of information in this document.
[2023-06-29 10:19] LABS: AST(SGOT) 20 U/L (15-37); Alanine Aminotransfer ALT/SGPT 38 U/L (13-56); Albumin, Serum 3.6 g/dL (3.2-5.0); Alkaline Phosphatase 103 U/L (45-117); Anion Gap 5 (5-15); BUN 16 mg/dL (7-18); BUN/Creat Ratio 17.4 RATIO (10-20); Calcium,Total 9.4 mg/dL (8.5-10.1); Chloride 109 mmol/L (98-107); Cholesterol 210 mg/dL (200); Creatinine, Serum 0.92 mg/dL (0.55-1.02); EST Glomerular Filtration Rate 69 mL/min (>60); Est Glom Filt Rate - Afr Amer 83 mL/min (>60); Globulin 3.5 g/dL (2.2-4.2); Glucose 101 mg/dL (74-106); High Density Lipoprotein 51 mg/dL; Potassium 3.9 mmol/L (3.5-5.1); Protein, Total 7.1 g/dL (6.4-8.2); Sodium Level 140 mmol/L (136-145); T4 Free Direct 1.61 ng/dL (0.76-1.46); Thyroid Stim Hormone (TSH) 0.48 uIU/mL (0.358-3.74); Triglycerides 73 mg/dL; Very Low Density Lipoprotein 15 mg/dL (5-40)
[2023-07-01 09:34] LABS: Vitamin D,25 Hydroxy 53.6 ng/mL
== END | disposition home or self-care (01) ==
LOC: LAB 08:44
PROVIDERS: PCP Family Medicine; Referring Provider Family Medicine; Visit Provider Family Medicine
DX: K21.9 Gastro-esophageal reflux disease without esophagitis (principal); Z13.220 Encounter for screening for lipoid disorders; E55.9 Vitamin D deficiency, unspecified; E03.9 Hypothyroidism, unspecified
CPT/HCPCS: 36415; 80053; 80061; 82306; 84439; 84443

== ENCOUNTER → 2024-06-16 | Outpatient (CLI) | payer BC, SELFPAY ==
--- NOTE | 2024-06-16 08:10 | BI_ITS ---
MAMMOGRAPHY - BILATERAL SCREENING 3-D TOMOSYNTHESIS REASON FOR EXAM: Female, 48 years old. screening PERTINENT HISTORY: No significant family history. TECHNIQUE: 2-D mammograms and 3-D Tomosynthesis of the breast (s) were performed. CAD was performed. COMPARISON: 04/02/2023 FINDINGS: The breast composition is composed of scattered fibroglandular density. Scattered benign calcifications are seen. No dense spiculated masses or suspicious microcalcifications are identified. No architectural distortion is identified. There is no skin thickening or retraction. There has been no significant change since the prior study. BI/SCRN MAMM (CAD)W/BRANDEN BILAT IMPRESSION: No mammographic signs of malignancy. Routine yearly mammograms recommended. ASSESSMENT CATEGORY: BIRADS Category 1: Negative. A letter regarding these results will be sent to the patient by the facility within 30 days. FOLLOW UP RECOMMENDATION: Yearly follow up mammogram recommended. (A) Approximately 10% of breast cancers are not detected by mammography. A normal mammogram should not delay biopsy of a clinically suspicious abnormality. Electronically Signed: Mitchel Tuttle MD at 15:36 EST ,
== END | disposition home or self-care (01) ==
LOC: OPBI 08:09
PROVIDERS: PCP Family Medicine; Referring Provider Family Medicine; Visit Provider Family Medicine
DX: Z12.31 Encounter for screening mammogram for malignant neoplasm of breast (principal)
CPT/HCPCS: 77063; 77067

== ENCOUNTER → 2024-12-12 | Outpatient (CLI) | payer BC, SELFPAY ==
--- OUTSIDE RECORDS SUMMARY | 2024-12-12 09:11 | XMS RPT_ITS | CCD ---
Author Organization [facility] Informat ion Partnership [employer] [facility] Care Team Providers Care Clothes Separator Name Role Phone Spencer Hayes MD Unavailable [phone] YOLANDA ALBARADO Primary Care Unavailabl e Yolanda Albarado Referring Unavailable Yolanda Albarado Primary Care Unavailable Yolanda Albarado Attending Unavailable Yolanda Albarado Referring Unavailable Francisco Barnett Attending Unavailable Yolanda Albarado Primary Care Unavailable Allergies Allergy Classification Reported Allergen(s) Allergy Type Date of Onset Reaction(s) Facility (1 source) Seasonal allergy; Translations: [SEASONAL ALLERGIES] Propensity to adverse reactions (disorder) 2 [facility] Repository Medications Current Medications Medication Drug Class(es) Dates Sig (Normalized) Sig (Original) calcium carbonate 1250 mg chewable tablet (2 sources) Start: 09-12-2022 take 1 tablet by mouth once daily Calcium Carbonate (Calcium 500) 500 mg calcium (1,250 mg) tablet,chewable Active 500 MG PO DAILY September 11, 2022 11:00pm cetirizine hydrochloride 10 mg oral tablet (9 sources) Histamine-1 Receptor Antagonist Start: 05-30-2017 take 10 mg by mouth once daily Cetirizine Active 10 MG PO DAILY May 30, 2017 12:00am Fluticasone Propion-Salmeterol (9 sources) Corticosteroid, beta2-Adrenergic Agonist Start: 05-30-2017 Fluticasone Propion-Salmetero l Active 2 PUFF INHALATION NEEDED May 30, 2017 12:00am Start: 05-30-2017 Fluticasone Pr opion-Salmeterol Active 2 PUFF INHALATION NEEDED May 30, 2017 1:00am ADVAIR DISKUS 10 0-50 MCG/DOSE AEPB 1 puff twice daily FLUTICASONE-SALMETEROL [id number] Fritz Zhong ADVAIR DISKUS 10 0-50 MCG/DOSE AEPB 1 puff twice daily FLUTICASONE-SALMETEROL [id number] Fritz Zhong omeprazole 40 mg delayed release oral capsule (9 sources) Proton Pump Inhibitor Start: 05-30-2017 take 40 mg by mouth at bedtime Omeprazole Active 40 MG PO AT BEDTIME May 30, 2017 12:00am Start: 03-18-2017 OMEPRAZOLE 40 MG CPDR once daily OMEPRAZOLE [id number] Spencer Hayes MD Soy Isofla-Blk Cohosh-Mag Ba rk (Estroven) 155 mg capsule (2 sources) Start: 09-12-2022 Soy Isofla-Blk Cohosh-Mag Bark (Estroven) 155 mg capsule Active CAP PO September 11, 2022 11:00pm Start: 09-12-2022 Soy Isofla-Blk Cohosh-Mag Bark (Estroven) 155 mg capsule Active CAP PO September 12, 2022 12:00am Completed/Discontinued Medications Medication Drug Class(es) Dates Sig (Normalized) Sig (Original) acetaminophen 325 mg / HYDROcodone bitartrate 5 mg oral tablet (4 sources) Opioid Agonist Start: 06-10-2017 End: 09-12-2022 take 1 tablet by mouth every four hours as needed Hydrocodone-Acetam inophen Discontinued 1 TABLET PO EVERY 4 HOURS NEEDED June 10, 2017 12:00am September 12, 2022 1:42pm fexofenadine / Pseudoephedrine (5 sources) alpha-Adrenergic Agonist, Histamine-1 Receptor Antagonist take 1 tablet by mouth once daily KAVITHA-D ALLERGY & CONGESTION 60-120 MG [id number] One tablet by mouth daily FEXOFENADINE-PSEUD OEPHEDRINE [id number] Fritz Zhong take 60-120 mg by mo uth once daily KAVITHA-D ALLERGY & CONGESTION 60-120 MG [id number] One tablet by mouth daily FEXOFENADINE-PSEUDOEPHEDRINE [id number] Fritz Zhong levothyroxine sodium 0.112 mg oral capsule (20 sources) l-Thyroxine Start: 08-27-2017 End: 10-10-2017 take 1 capsule by mouth once levothyroxine 112 mcg capsule Discontinued 112 MCG PO ONCE September 23, 2017 12:27pm October 10, 2017 2:28pm Start: 07-24-2017 End: 08-27-2017 take 1 capsule by mouth once daily levothyroxine 100 mcg capsule Discontinued 100 MCG PO daily July 24, 2017 12:00am August 27, 2017 2:00pm Start: 05-30-2017 End: 07-24-2017 take 75 ug by mouth once daily Levothyroxine Discontin ued 75 MCG PO DAILY May 30, 2017 12:00am July 24, 2017 3:54pm Start: 03-18-2017 LEVO-T 75 MCG TABS once daily LEVOTHYROXINE SODIUM [id number] Spencer Hayes MD Start: 03-18-2017 LEVO-T 75 MCG TABS once daily LEVOTHYROXINE SODIUM [id number] Spencer Hayes MD raNITIdine 150 mg oral capsule (10 sources) Histamine-2 Receptor Antagonist End: 03-18-2017 take 1 tablet by mouth once daily RANITIDINE HCL 150 MG CAPS One tablet by mouth daily RANITIDINE HCL [id number] Fritz L Trevin Problems Active Problems Problem Classification Problem Date Documented Date Episodic/Chronic Esophageal disorders (13 sources) Gastroesophageal reflux disease; Translations: [Gastro-esophageal reflux disease without esophagitis] 09-03-2014 Chronic Menopausal disorders (2 sources) Menopausal syndrome; Translations: [Menopausal and female climacteric states] 09-12-2022 Chronic Other upper respiratory disease (4 sources) Seasonal allergic rhinitis; Translations: [Other seasonal allergic rhinitis] 06-10-2017 Chronic Residual codes; unclassified (4 sources) Past history of procedure; Translations: [Other specified postprocedural states] 06-10-2017 Episodic Thyroid disorders (18 sources) Multinodular goiter; Translations: [Non-toxic uninodular goiter] Onset: 03-18-2017 03-18-2017 Chronic Past or Other Problems Problem Classification Problem Date Documented Da te Episodic/Chronic Other screening for suspected conditions (not mental disorders or infectious disease) (1 source) Encounter for screening mammogram for malignant neoplasm of breast; Translations: [Encounter for screening mammogram for malignant neoplasm of breast] Onset: 07-16-2024 Episodic Results Test Name Value Interpretation Reference Range Facility Urgent Care Visit Reporton 0 10-15-2024 Urgent Care Visit Report [facility] [address], [address] [place] [address] OFFICE VISIT Date of Service: 10/15/24 MR#: [id number] Acct: [id number] Name: FLAKITA THOMAS Rep #: [id number] : 1975 Provider: MIKE White Age/Sex: 48/F Location: [facility] Status: Signed Intake Vital Signs 09/12/22 14:36 10/15/24 08:19 Height 5 ft 5 in 5 ft 5 in Weight: 247 lb BMI 41.1 BP 132/84 H Blood Pressure Location Lt brachial Position Sitting Respiration 16 Pulse 67 Pulse Source NIBP Temp 98.5 F Temp Source Oral Pulse Oximetry (%) 98 Oxygen Delivery Method room air Intake Visit Reasons: CHEST CONGESTION Chief Complaint: cough, chest congest, fatigue Surveillance Sensor Operator Required: No Is patient in pain?: No Allergies No Known Allergies Allergy (Verified 10/15/24 08:19) Is last menstrual period known: No Post menopausal: No Patient : No Have you fallen in the past year?: No Nurse's Note: cough, chest congest, fatigue x 2 weeks without resolve. hx asthma but well controlled, states this feels worse. denies fever, ANTUNEZ, BA, ST PFSH Medical History (Updated 10/15/24 @ 10:04 by Francisco MCKEON, PA) Asthma Esophageal reflux Nontoxic uninodular goiter Multinodular thyroid GERD (gastroesophageal reflux disease) Seasonal allergies Surgical History S/P thyroidectomy S/P fine needle aspiration S/P hysterectomy Family History Father CAD (coronary artery disease) Arthritis Social History (Updated 09/12/22 @ 14:45 by Valery Barker) adopted: No household members: children housing: apartment number of children: 2 current occupational status: employed current occupation: [employer] Smoking Status: Former smoker alcohol intake: current substance use type: does not use what type of physical activity do you participate in: none seatbelt use: always do you feel safe at home: Yes additional social history: [facility] HPI Chief Complaint: cough, chest congest, fatigue Details: FLAKITA THOMAS, is a 48 F who presents to the office today for complaint of cough, congestion and fatigue for the past 2 weeks. Patient denies hemoptysis, shortness of breath or difficulty breathing. No fever, chills, sweats. No nausea, vomiting or diarrhea. No loss of taste or smell. No other associated symptoms or alleviating/aggravatin g factors. ROS Const Constitutional: No other (6 system ROS completed with pertinent findings in the HPI otherwise normal.) Exam Const General: cooperative and well developed HENMT Head: normal to inspection and atraumatic Ears: hearing grossly normal bilaterally Nose: nasal discharge clear Face and sinus: normal facial exam Mouth: oral mucosae normal Throat: abnormal tonsil bilaterally hypertrophy 1+ Resp Effort Inspection: normal respiratory effort and no audible wheezes Auscultation: Bilateral: Clear to Auscultation Cardio Rate: regular rate Rhythm: regular rhythm Neuro General: patient alert Psych Appearance: grossly normal Mental Status: mental status grossly normal Coding Level of Care Code Off vis,new,level 3 Diagnoses Acute bronchitis J20.9 Assessment and Plan Assessment and Plan (1) Acute bronchitis: Status: Acute Plan: Azithromycin, Medrol Dosepak and albuterol as prescribed today. Encouraged to get plenty of rest, drink lots of clear liquids, and use Tylenol or Ibuprofen (unless contraindicated) for fever and comfort. Patient also educated on other symptomatic management techniques. To be seen in 7-10 days if no improvement; sooner if worsening of symptoms. Patient advised of potential red flags and when appropriate to report to the ED. Patient verbalized understanding and agreement with all the above. Medications: New azithromycin take 500 mg today (day 1), then 250 mg for 4 days (days 2-5) PO 6 tabs 0RF methylprednisolone (Medrol (Justin)) 4 mg PO PER PKG DIR 21 tabs 0RF 6 days albuterol sulfate 90 mcg/actuation 2 puffs inhalation Q4-6H PRN 6.7 grams 0RF shortness of breath or wheezing Clinical Quality Measures Falls Risk Screening/Assistive Devices Have you fallen in the past year?: No 10/15/24 1007 Date Francisco Kwon Signature: Date (if applicable) CC: Normal [facility] SCRN MAMM (CAD)W/BRANDEN BILATo n 06-16-2024 SCRN MAMM (CAD)W/BRANDEN BILAT [facility] Imaging Services [address] [place] [address] SCRN MAMM (CAD)W/BRANDEN BILAT MR#: [id number] Acct: [id number] Name: FLAKITA THOMAS Rep #: [id number] : 1975 F 48 From: Mitchel Tuttle MD PCP: Dr. Yolanda Albarado MD Status: [facility] Study: SCRN MAMM (CAD)W/BRANDEN BILAT Date of Exam: 05/25 10/15 Exam# [id number] Ordering Dr: Yolanda Albarado [id number] MAMMOGRAPHY - BILATERAL SCREENING 3-D TOMOSYNTHESIS REASON FOR EXAM: Female, 48 years old. screening PERTINENT HISTORY: No significant family history. TECHNIQUE: 2-D mammograms and 3-D Tomosynthesis of the breast (s) were performed. CAD was performed. COMPARISON: 04/02/2023 FINDINGS: The breast composition is composed of scattered fibroglandular density. Scattered benign calcifications are seen. No dense spiculated masses or suspicious microcalcifications are identified. No architectural distortion is identified. There is no skin thickening or retraction. There has been no significant change since the prior study. BI/SCRN MAMM (CAD)W/BRANDEN BILAT IMPRESSION: No mammographic signs of malignancy. Routine yearly mammograms recommended. ASSESSMENT CATEGORY: BIRADS Category 1: Negative. A letter regarding these results will be sent to the patient by the facility within 30 days. FOLLOW UP RECOMMENDATION: Yearly follow up mammogram recommended. (A) Approximately 10% of breast cancers are not detected by mammography. A normal mammogram should not delay biopsy of a clinically suspicious abnormality. Electronically Signed: Mitchel Tuttle MD at 15:36 EST , CC: Dr. Yolanda Albarado MD Extractor Operator Solvent Process: Signed Normal [facility] CNOVon 07-12-2023 CNOV Office Visit (UCWSTR ) FLAKITA THOMAS ([id number]) 1975 F Date Time Provider Department 07/12/23 5:15 PM ELVIN MORAN [facility] During your visit today, we recorded the following information about you: Temperature Pulse Respiration Blood pressure 98.3 degrees 87/minute 18/minute 156/97 Weight 110.7 kg Elvin Moran MD 07/12/2023 5:40 PM Signed Patient presents with: Cough: Head and chest congestion x1 week, sinus drainage HPI: Feeling sick for 1 week. Positive symptoms: Cough, Nasal Congestion, Rhinorrhea, Post nasal drainage, Wheezing, Chest pain from coughing, Diarrhea, tussive emesis, resolved fever Negative symptoms: Sinus pressure, OTC: Mucinex DM, inhaler Home COVID test negative PAST MEDICAL HISTORY Diagnosis Date Allergic rhinitis, cause unspecified Allergic rhinitis Unspecified asthma(493.90) MEDICATIONS: Current Outpatient Medications Medication Sig levothyroxine (SYNTHROID) 112 mcg tablet Take 1 tablet by mouth every afternoon. fluticasone (FLONASE) 50 mcg/actuation nasal spray INSTILL 1 SPRAY INTO EACH NOSTRIL ONE TIME PER DAY NEEDED FOR 7 DAYS Omeprazole (PRILOSEC) 40 mg capsule Take 40 mg by mouth once daily. MOMETASONE FUROATE (NASONEX NASAL) Use in the nose as needed. cetirizine (ZYRTEC) 10 mg ORAL tablet Take one(1) tablet daily. No current facility-administered medications for this visit. ALLERGIES: ALLERGIES Allergen Reactions Seasonal Allergies Unknown VITALS: BP 156/97 Pulse 87 Temp 36.8 ?C (98.3 ?F) Resp 18 Wt 110.7 kg (244 lb) LMP 06/09/2006 SpO2 99% BMI 39.38 kg/m? PHYSICAL EXAM: GEN: Pleasant, in no acute distress. HEENT: PERRL, EOMI, conjunctiva clear Ears: canals clear. TMs without erythema, bulge, or effusion Sinuses: non-tender frontal sinus, non-tender maxillary sinuses; sniffing discharge Throat: moist mucous membranes, no erythema, no exudate Neck: supple, no thyromegaly, no lymphadenopathy HEART: regular rate and rhythm, no murmurs LUNGS: clear to auscultation, no wheezes or crackles, no increased WOB; wheezy cough ASSESSMENT/PLAN: 1. URI, acute - ICD9: 465.9, ICD10: J06.9 (primary diagnosis) 2. Asthma with acute exacerbation, unspecified asthma severity, unspecified whether persistent - ICD9: 493.92, ICD10: J45.901 - suspect viral URI - Discussed supportive care treatment with rest, cough and cold medicine (upsets her stomach and may be causing diarrhea), and analgesia. - PREDNISONE 10 MG TABLET taper. Denies side effects with past use. Follow up with worsening cough, worsening shortness of breath, increasing chest pain, or late onset fever. Elvin Moran MD Allergies As of Date: 07/12/2023 Noted Allergy Reaction SEASONAL ALLERGIES 04/24/2012 16 - Unknown Date Reviewed: 07/12/2023 Reviewed by: Kendra Ma MA - Fully Assessed Reason for Visit: Cough [28] Cmt: Head and chest congestion x1 week, sinus drainage Primary Visit Diagnosis:URI, acute [J06.9] Other Visit Diagnosis:Asthma with acute exacerbation, unspecified asthma severity, unspecified whether persistent [J45.901] Order(s):predniSONE (DELTASONE) 10 mg tabletTake 5 tablets by mouth once daily for 1 day, THEN 4 tablets once daily for 1 day, THEN 3 tablets once daily for 1 day, THEN 2 tablets once daily for 1 day, THEN 1 tablet once daily for 1 day.Disp: 15 tabletRfl: 0 Prescriptions as of 07/12/2023 - levothyroxine (SYNTHROID) 112 mcg tablet Take 1 tablet by mouth every afternoon. - fluticasone (FLONASE) 50 mcg/actuation nasal spray INSTILL 1 SPRAY INTO EACH NOSTRIL ONE TIME PER DAY NEEDED FOR 7 DAYS - predniSONE (DELTASONE) 10 mg tablet Take 5 tablets by mouth once daily for 1 day, THEN 4 tablets once daily for 1 day, THEN 3 tablets once daily for 1 day, THEN 2 tablets once daily for 1 day, THEN 1 tablet once daily for 1 day. - Omeprazole (PRILOSEC) 40 mg capsule Take 40 mg by mouth once daily. - MOMETASONE FUROATE (NASONEX NASAL) Use in the nose as needed. - cetirizine (ZYRTEC) 10 mg ORAL tablet Take one(1) tablet daily. Medication notes this encounter RANITIDINE 150 MG TABLET >> Kendra Ma MA 07/12/2023 5:22 PM >> KENDRA MA Jul 12, 2023 5:22 PM Problem List As Of Date 07/12/2023 Noted Resolved FAMILY HX ISCHEM HEART DIS [Z82.49] 06/15/2006 Asthma [J45.909] 07/31/2010 Nontoxic uninodular goiter [E04.1] 07/05/2014 Prescriptions ordered this encounter Disp Refills Start End PREDNISONE 10 MG TABLET 15 t* 0 07/12/2023 07/17/2023 Route: ORAL Sig: Take 5 tablets by mouth once daily for 1 day, THEN 4 tablets once daily for 1 day, THEN 3 tablets once daily for 1 day, THEN 2 tablets once daily for 1 day, THEN 1 tablet once daily for 1 day. Medications Discontinued During This Encounter Prescriptions - fluticasone-salmeterol (ADVAIR DISKUS) 500-50 mcg/dose INHALATION DsDv (more content not included)... Normal [facility] Basophil percentageOrdered B y: Cristi Albarado on 06-29-2023 Bilirubin [Mass/Vol] 0.90 mg/dL 0.20-1.00 [facility] Comment on above: For patients on eltr ombopag therapy, use of Dimension Doyle TBIL is not recommended. Chloride [Moles/Vol] 109 mmol/L 98-107 [facility] Cholesterol [Mass/Vol] 210 mg/dL <200 [facility] Comment on above: <200 mg/dL Desirable 200-240 mg/dL Borderline >240 mg/dL High Risk Glucose [Mass/Vol] 101 mg/dL 74-106 [facility] Comment on above: Fasting Glucose resu lt from 100 to 125 mg/dL suggests IMPAIRED HOMEOSTASIS per A.D.A. criteria. Potassium [Moles/Vol] 3.9 mmol/L 3.5-5.1 [facility] Protein [Mass/Vol] 7.1 g/dL 6.4-8.2 [facility] Sodium [Moles/Vol] 140 mmol/L 136-145 [facility] Triglyceride [Mass/Vol] 73 mg/dL <199 [facility] Comment on above: The drugs N-Acetylcy steine and Metamizole may falsely depress this assay.Serum Triglycerides Reference Interval Normal <150 mg/dL Borderline high 150 - 199 mg/dL High 200 - 499 mg/dL Very High > or = 500 mg/dL Laboratory - Chemistry and C hemistry - challengeOrdered By: Cristi Albarado on 06-29-2023 ALP [Catalytic activity/Vol] 103 U/L 45-117 [facility] ALT [Catalytic activity/Vol] 38 U/L 13-56 [facility] CO2 [Moles/Vol] 26.0 mmol/L 21.0-32.0 [facility] Free T4 [Mass/Vol] 1.61 ng/dL 0.76-1.46 [facility] Globulin (S) [Mass/Vol] 3.5 g/dL 2.2-4.2 [facility] Urea nitrogen/Creatinine [Mass ratio] 17.4 mg/mg 10-20 [facility] No Panel InformationOrdered By: Cristi Albarado on 06-29-2023 Estimated GFR (MDRD) Amer 83 mL/min >60 [facility] Comment on above: GFR Calc Estimated GFR (MDRD) Non-Af Amer 69 mL/min >60 [facility] Comment on above: Non- GFR Calc Thyroid Stimulating Hormone (TSH) 0.48 uIU/mL 0.358-3.74 [facility] Vitamin D 25-Hydroxy 53.6 ng/mL [facility] Comment on above: Vitamin D 25(OH) Sta tus Range Deficiency <20 ng/mL (50nmol/L) Insufficiency 20 - 30 ng/mL (50 - 75 nmol/L) Sufficiency 30 - 100 ng/mL (75 - 250 nmol/L) Toxicity >100 ng/mL (>250 nmol/L) Serum or plasma albumin nemo urement (mass/volume)Ordered By: Cristi Albarado on 06-29-2023 Albumin [Mass/Vol] 3.6 g/dL 3.2-5.0 [facility] Serum or plasma albumin/glob ulin mass ratioOrdered By: Cristi Albarado on 06-29-2023 Albumin/Globulin [Mass ratio] 1.0 {ratio} 0.9-2.4 [facility] Serum or plasma calcium nemo urement (mass/volume)Ordered By: Cristi Albarado on 06-29-2023 Calcium [Mass/Vol] 9.4 mg/dL 8.5-10.1 [facility] Serum or plasma cholesterol in HDL measurement (mass/volume)Ordered By: Cristi Albarado on 06-29-2023 Cholesterol in HDL [Mass/Vol] 51 mg/dL >40 [facility] Comment on above: The drugs N-Acetylcy steine and Metamizole may falsely depress this assay. Reference Range HDL <40 mg/dL Low HDL Cholesterol HDL >or= 60 mg/dL High HDL Cholesterol Serum or plasma cholesterol in VLDL measurement (mass/volume)Ordered By: Cristi Albarado on 06-29-2023 Cholesterol in VLDL [Mass/Vol] 15 mg/dL 5-40 [facility] Serum or plasma creatinine m easurement (mass/volume)Ordered By: Cristi Albarado on 06-29-2023 Creatinine [Mass/Vol] 0.92 mg/dL 0.55-1.02 [facility] Comment on above: The validity of the calculated GFR & GFRAA in patients over 70 years has not been determined. Clinical correlation is essential. Serum or plasma low density lipoprotein (LDL) cholesterol measurement (mass/volume)Ordered By: Cristi Albarado on 06-29-2023 Cholesterol in LDL [Mass/Vol] 144 mg/dL 0-130 [facility] Serum or plasma urea nitroge n measurement (mass/volume)Ordered By: Cristi Albarado on 06-29-2023 Urea nitrogen [Mass/Vol] 16 mg/dL 7-18 [facility] Thin prep Papanicolaou smear with manual screeningOrdered By: Cristi Albarado on 06-29-2023 Thin prep Papanicolaou smear with manual screening 20 U/L 15-37 [facility] Thin prep Papanicolaou smear with manual screening 5 5-15 [facility] Basophil percentageon 2021 Chloride [Moles/Vol] 104 mmol/L 98-107 [facility] Work Phone: Cholesterol [Mass/Vol] 218 mg/dL <200 [facility] Work Phone: Comment on above: <200 mg/dL Desirable 200-240 mg/dL Borderline >240 mg/dL High Risk Glucose [Mass/Vol] 100 mg/dL 74-106 [facility] Work Phone: Comment on above: Fasting Glucose resu lt from 100 to 125 mg/dL suggests IMPAIRED HOMEOSTASIS per A.D.A. criteria. Potassium [Moles/Vol] 4.4 mmol/L 3.5-5.1 [facility] Work Phone: Sodium [Moles/Vol] 141 mmol/L 136-145 [facility] Work Phone: Triglyceride [Mass/Vol] 114 mg/dL <199 [facility] Work Phone: Comment on above: The drugs N-Acetylcy steine and Metamizole may falsely depress this assay.Serum Triglycerides Reference Interval Normal <150 mg/dL Borderline high 150 - 199 mg/dL High 200 - 499 mg/dL Very High > or = 500 mg/dL Laboratory - Chemistry and C hemistry - challengeon 06-05-2022 CO2 [Moles/Vol] 28.0 mmol/L 21.0-32.0 [facility] Work Phone: Free T4 [Mass/Vol] 1.45 ng/dL 0.76-1.46 [facility] Work Phone: Urea nitrogen/Creatinine [Mass ratio] 14.1 mg/mg 10-20 [facility] Work Phone: No Panel Informationon 06-05 Estimated GFR (MDRD) Amer 92 mL/min >60 [facility] Work Phone: Comment on above: GFR Calc Estimated GFR (MDRD) Non-Af Amer 76 mL/min >60 [facility] Work Phone: Comment on above: Non- GFR Calc Thyroid Stimulating Hormone (TSH) 0.65 uIU/mL 0.358-3.74 [facility] Work Phone: Vitamin D 25-Hydroxy 46.8 ng/mL [facility] Work Phone: Comment on above: Vitamin D 25(OH) Sta tus Range Deficiency <20 ng/mL (50nmol/L) Insufficiency 20 - 30 ng/mL (50 - 75 nmol/L) Sufficiency 30 - 100 ng/mL (75 - 250 nmol/L) Toxicity >100 ng/mL (>250 nmol/L) Serum or plasma calcium nemo urement (mass/volume)on 06-05-2022 Calcium [Mass/Vol] 9.4 mg/dL 8.5-10.1 [facility] Work Phone: Serum or plasma cholesterol in HDL measurement (mass/volume)on 06-05-2022 Cholesterol in HDL [Mass/Vol] 51 mg/dL >40 [facility] Work Phone: Comment on above: The drugs N-Acetylcy steine and Metamizole may falsely depress this assay. Reference Range HDL <40 mg/dL Low HDL Cholesterol HDL >or= 60 mg/dL High HDL Cholesterol Serum or plasma cholesterol in VLDL measurement (mass/volume)on 06-05-2022 Cholesterol in VLDL [Mass/Vol] 23 mg/dL 5-40 [facility] Work Phone: Serum or plasma creatinine m easurement (mass/volume)on 06-05-2022 Creatinine [Mass/Vol] 0.85 mg/dL 0.55-1.02 [facility] Work Phone: Comment on above: The validity of the calculated GFR & GFRAA in patients over 70 years has not been determined. Clinical correlation is essential. Serum or plasma low density lipoprotein (LDL) cholesterol measurement (mass/volume)on 06-05-2022 Cholesterol in LDL [Mass/Vol] 144 mg/dL 0-130 [facility] Work Phone: Serum or plasma urea nitroge n measurement (mass/volume)on 06-05-2022 Urea nitrogen [Mass/Vol] 12 mg/dL 7-18 [facility] Work Phone: Thin prep Papanicolaou smear with manual screeningon 06-05-2022 Thin prep Papanicolaou smear with manual screening 9 5-15 [facility] Work Phone: Lab Report: Basic Metabolic Profile (BMP)on 06-07-2017 Anion gap 8 mmol/L Invalid Interpretation Code 5-15 [facility] [employer] Work Phone: BUN/Creatinine Ratio 14.8 RATIO Invalid Interpretation Code 10-20 [facility] [employer] Work Phone: Calcium 9.1 mg/dL Invalid Interpretation Code 8.5-10.1 [facility] [employer] Work Phone: Chloride 105 mmol/L Invalid Interpretation Code 98-107 [facility] [employer] Work Phone: CO2 25.0 mmol/L Invalid Interpretation Code 21.0-32.0 [facility] [employer] Work Phone: Creatinine 0.74 mg/dL Invalid Interpretation Code 0.55-1.02 [facility] [employer] Work Phone: eGFR (non-black) 91 mL/min/{1.73_m2} Invalid Interpretation Code >60 [facility] [employer] Work Phone: eGFR (non-black) 110 mL/min/{1.73_m2} Invalid Interpretation Code >60 [facility] [employer] Work Phone: Glucose 90 mg/dL Invalid Interpretation Code 70-110 [facility] [employer] Work Phone: Potassium 3.7 mmol/L Invalid Interpretation Code 3.5-5.1 [facility] [employer] Work Phone: Sodium 138 mmol/L Invalid Interpretation Code 136-145 [facility] [employer] Work Phone: Urea nitrogen 11 mg/dL Invalid Interpretation Code 7-18 [facility] [employer] Work Phone: Lab Report: CBC-Complete Blo od Cnt No Diffon 06-07-2017 Erythrocytes (RBC) 4.79 10*6/uL Invalid Interpretation Code 4.2-5.4 [facility] [employer] Work Phone: Hematocrit (HCT) 41.5 % Invalid Interpretation Code 37-47 [facility] [employer] Work Phone: Hemoglobin (HGB) 14.7 g/dL Invalid Interpretation Code 12.0-15.0 [facility] [employer] Work Phone: MCH 30.7 pg Invalid Interpretation Code 27.0-32.0 [facility] [employer] Work Phone: MCHC 35.4 G/GL Invalid Interpretation Code 32-36 [facility] [employer] Work Phone: MCV 86.6 fL Invalid Interpretation Code 81-99 [facility] [employer] Work Phone: Platelets 321 10*3/mm3 Invalid Interpretation Code 150-450 [facility] [employer] Work Phone: PMV by Dena 11.0 fL Invalid Interpretation Code 6.2-12.0 [facility] [employer] Work Phone: RDW-CA 12.5 % Invalid Interpretation Code 11.6-14.6 [facility] [employer] Work Phone: red blood cell distribution width, size density 38.9 fL Invalid Interpretation Code 35.1-43.9 [facility] [employer] Work Phone: WBC (Leukocytes) 7.8 10*3/uL Invalid Interpretation Code 4.4-11.0 [facility] [employer] Work Phone: Lab Report: Phosphoruson Phosphorus Concentratation-Rando m 2.9 mg/dL Invalid Interpretation Code 2.5-4.9 [facility] [employer] Work Phone: Lab Report: Prothrombin Time w/INRon 06-07-2017 Coagulation tissue factor induced in platelet poor plasma 13.1 s Invalid Interpretation Code 11.7-14.9 [facility] [employer] Work Phone: INR in blood by coagulation 1.0 {INR} Invalid Interpretation Code [facility] [employer] Work Phone: Lab Report: Thyroid Stim Hor romy (TSH)on 06-07-2017 Thyroid stimulating hormone (TSH) 3.74 u[iU]/mL Invalid Interpretation Code 0.358-3.74 [facility] [employer] Work Phone: Office Visit: Post Op Thyroi d FNAon 04-03-2017 Documentation of current medications (procedure) Done Invalid Interpretation Code [facility] [employer] Work Phone: Fall risk assessment No Invalid Interpretation Code [facility] [employer] Work Phone: Tobacco smoking status NHIS Never Invalid Interpretation Code [facility] [employer] Work Phone: Tobacco smoking status NHIS Tobacco smoking status NHIS Invalid Interpretation Code [facility] [employer] Work Phone: Tobacco use CPHS Never smoker Invalid Interpretation Code [facility] [employer] Work Phone: Office Visit: FNA Bilateral thyroidon 03-27-2017 Documentation of current medications (procedure) Done Invalid Interpretation Code [facility] [employer] Work Phone: Tobacco smoking status NHIS Never Invalid Interpretation Code [facility] [employer] Work Phone: Tobacco use CPHS Never smoker Invalid Interpretation Code [facility] [employer] Work Phone: Office Visit: Thyroid nodule on 03-18-2017 Fall risk assessment No Invalid Interpretation Code [facility] [employer] Work Phone: Protein mass conc Done [facility] [employer] Work Phone: Tobacco smoking status NHIS Never [facility] [employer] Work Phone: Tobacco smoking status NHIS Never smoker [facility] [employer] Work Phone: Office Visit: Thyroid nodule on 02-01-2016 MG Breast screening Normal Bilateral Invalid Interpretation Code [facility] Work Phone: Vital Signs Date Time Vital Sign Value Performing Clinician Facility 03-18-2017 08:11-0400 BMI (Body Mass Index) 3.67 kg/m2 Spencer Hayes MD [facility] Work Phone: 03-18-2017 08:11-0400 Body Temperature 97.9 [degF] Spencer Hayes MD [facility] Work Phone: 03-18-2017 08:11-0400 BP Diastolic 93 mm[Hg] Spencer Hayes MD [facility] Work Phone: 03-18-2017 08:11-0400 BP Systolic 128 mm[Hg] Spencer Hayes MD [facility] Work Phone: 03-18-2017 08:110400 Height 505.97 cm Spencer Hayes MD [facility] Work Phone: 03-18-2017 08:11-0400 Pulse (Heart Rate) 77 /min Spencer Hayes MD [facility] Work Phone: 03-18-2017 08:11-0400 Respiratory Rate 20 /min Spencer Hayes MD [facility] Work Phone: 03-18-2017 08:11-0400 Weight 93.9 kg Spencer Hayes MD [facility] Work Phone: 03-18-2017 08:11-0400 Weight 93.89 kg Spencer Hayes MD [facility] Work Phone: 09-03-2014 09:090400 BSA (Body Surface Area) 2.78 m2 Spencer Hayes MD [facility] Work Phone: 09-03-2014 09:040 Height 505.97 cm Spencer Hayes MD [facility] Work Phone: Encounters Encounter Date Encounter Type Care Provider Facility Start: 10-15-2024 End: 10-15-2024 ambulatory [facility] Facility:[facility] Start: 06-16-2024 End: 06-16-2024 ambulatory [facility] Facility:[facility] Start: 07-12-2023 End: 07-12-2023 ambulatory [facility] Facility:[facility] Start: 06-29-2023 End: 06-29-2023 ambulatory [facility] Work Phone: Start: 06-29-2023 End: 06-29-2023 Patient encounter procedure [facility] Work Phone: Start: 04-02-2023 End: 04-02-2023 ambulatory [facility] Work Phone: Start: 04-02-2023 End: 04-02-2023 Patient encounter procedure [facility] Work Phone: Start: 06-05-2022 End: 06-05-2022 ambulatory [facility] Work Phone: Start: 06-05-2022 End: 06-05-2022 Patient encounter procedure [facility], [facility] Start: 02-20-2022 End: 02-20-2022 ambulatory [facility] Work Phone: Start: 02-20-2022 End: 02-20-2022 Patient encounter procedure [facility] Procedures Date Procedure Procedure Detail Performing Clinician Start: 04-02-2023 Screening mammography Start: 02-20-2022 Screening mammography Start: 03-27-2017 End: 03-27-2017 Fine needle aspiration with imaging guidance Spencer Hayes MD Work Phone: Start: 03-27-2017 End: 03-27-2017 Fna w/image Spencer Hayes MD Work Phone: H/O: hysterectomy S/P hysterectomy History of thyroidectomy S/P thyroidectom y Plan of Treatment Date Care Activity Detail Author Start: 04-02-2023 Screening mammography SCRN MARISOL M (CAD)W/BRANDEN BILAT [facility] Start: 04-03-2017 End: 04-03-2017 Appointment Appointment [facility] Work Phone: Start: 03-27-2017 End: 03-27-2017 Appointment Appointment [facility] Work Phone: Start: 03-18-2017 End: 03-18-2017 Appointment Appointment [facility] Work Phone: [facility] Work Phone: Payers Date Payer Category Payer Self-pay [id number] 2023 Unknown [id number] 2016 Private Health Insurance [facility] [id number] Private Health Insurance [employer] [id number] Unknown ANTHEM [id number] Unknown [facility] [id number] Unknown [id number] Unknown [id number] Social History Date Type Detail Facility Start: 02-07-2022 End: 09-12-2022 Tobacco smoking status ORIS Unknown if ever smoked [facility] Start: 1975 Sex Assigned At Female W [facility] Medical Equipment Procedure Code Equipment Code Equipment Origin al Text Equipment Identifier Dates DRESSING,FIBRILL AR 1962 FDA Start: 06-10-2017 DRESSING,FIBRILL AR 1962 FDA Start: 06-10-2017 DRESSING,FIBRILL AR 1962 FDA Start: 06-10-2017 DRESSING,FIBRILL AR 1962 FDA Start: 06-10-2017 Progress note 07-12-2023 Note Date & Type Note Facility 07-12-2023 Note HNO ID: [id number] Author: ELVIN MORAN MD Service: ? Author Type: Physician Type: Progress Notes Filed: 07/12/2023 17:40 Note Text: Patient presents with: Cough: Head and chest congestion x1 week, sinus drainage HPI: Feeling sick for 1 week. Positive symptoms: Cough, Nasal Congestion, Rhinorrhea, Post nasal drainage, Wheezing, Chest pain from coughing, Diarrhea, tussive emesis, resolved fever Negative symptoms: Sinus pressure, OTC: Mucinex DM, inhaler Home COVID test negative PAST MEDICAL HISTORY Diagnosis Date Allergic rhinitis, cause unspecified Allergic rhinitis Unspecified asthma(493.90) MEDICATIONS: Current Outpatient Medications Medication Sig levothyroxine (SYNTHROID) 112 mcg tablet Take 1 tablet by mouth every afternoon. fluticasone (FLONASE) 50 mcg/actuation nasal spray INSTILL 1 SPRAY INTO EACH NOSTRIL ONE TIME PER DAY NEEDED FOR 7 DAYS Omeprazole (PRILOSEC) 40 mg capsule Take 40 mg by mouth once daily. MOMETASONE FUROATE (NASONEX NASAL) Use in the nose as needed. cetirizine (ZYRTEC) 10 mg ORAL tablet Take one(1) tablet daily. No current facility-administered medications for this visit. ALLERGIES: ALLERGIES Allergen Reactions Seasonal Allergies Unknown VITALS: BP 156/97 Pulse 87 Temp 36.8 ?C (98.3 ?F) Resp 18 Wt 110.7 kg (244 lb) LMP 06/09/2006 SpO2 99% BMI 39.38 kg/m? PHYSICAL EXAM: GEN: Pleasant, in no acute distress. HEENT: PERRL, EOMI, conjunctiva clear Ears: canals clear. TMs without erythema, bulge, or effusion Sinuses: non-tender frontal sinus, non-tender maxillary sinuses; sniffing discharge Throat: moist mucous membranes, no erythema, no exudate Neck: supple, no thyromegaly, no lymphadenopathy HEART: regular rate and rhythm, no murmurs LUNGS: clear to auscultation, no wheezes or crackles, no increased WOB; wheezy cough ASSESSMENT/PLAN: 1. URI, acute - ICD9: 465.9, ICD10: J06.9 (primary diagnosis) 2. Asthma with acute exacerbation, unspecified asthma severity, unspecified whether persistent - ICD9: 493.92, ICD10: J45.901 - suspect viral URI - Discussed supportive care treatment with rest, cough and cold medicine (upsets her stomach and may be causing diarrhea), and analgesia. - PREDNISONE 10 MG TABLET taper. Denies side effects with past use. Follow up with worsening cough, worsening shortness of breath, increasing chest pain, or late onset fever. Elvin Moran MD [facility] Evaluation note Note Date & Type Note Facility Evaluation note No assessment information availa [facility] Work Phone: Chief Complaint and Reason for Visit Chief Complaint SCREENING Chief Complaint SCREENING EORDERS Advance Directives No Advanced Directives Records Found Advance Directive Response Recorded Date/ Time Living Will No February 07 2 1:27pm Power of Claims Coordinator No February 07 022 1:27pm Advance Directive Response Recorded Date/ Time Living Will No February 07 2 12:27pm Power of Claims Coordinator No February 07 022 12:27pm Summary Purpose Family History No Family History Records Found Additional Source Comments Goals (unrecognized section and content) Goals may be documented in a n alternate sectionGoals may be documented in an alternate sectionGoals may be documented in an alternate sectionGoals may be documented in an alternate section Care Teams (unrecognized sec tion and content) Team Status: Active Member Role Status Dates Dr. Cristi Albarado MD Family Provider Active Dr. Cristi Albarado MD Primary Care Provider Activ e Team Status: Inactive Member Role Status Dates Dr. Cristi Albarado MD Primary Care Provider Activ e Gloria Steve HISTORY DEPARTMENT CHAIR, HISTORY DEPARTMENT CHAIR-C Attending Provider, Referring Provider Active Team Status: Inactive Member Role Status Dates Dr. Cristi Albarado MD Primary Care Provider, Attending Provider, Referring Provider Active INFORMATION SOURCE (unrecogn ized section and content) DATE CREATED AUTHOR 07/13/2023 [facility] DATE CREATED AUTHOR AUTHOR'S ORGANIZ ATION 10/16/2024 [facility] FOR RECORDS PERTAINING TO PATIENTS WHO ARE [...] BE BASED ON THE PRIMARY CLINICAL RECORDS. [employer] [facility]. provides no warranty or guarantee of the accuracy or completeness of information in this document.
[2024-12-12 10:21] LABS: ALB/GLOB Ratio 1.6 RATIO (0.9-2.4); AST(SGOT) 32 U/L (<=31); Alanine Aminotransfer ALT/SGPT 51 U/L (<=34); Alkaline Phosphatase 94 U/L (35-104); Anion Gap 11 (5-15); BUN 11 mg/dL (4-19); BUN/Creat Ratio 13.9 RATIO (10-20); Calcium,Total 9.2 mg/dL (7.6-11.0); Chloride 106 mmol/L (98-108); Cholesterol 190 mg/dL (<=200); Creatinine, Serum 0.82 mg/dL (0.70-1.20); EST Glomerular Filtration Rate 86 (>60); Globulin 2.5 g/dL (2.2-4.2); Glucose 99 mg/dL (70-99); High Density Lipoprotein 51 mg/dL; Low Density Lipoprotein Calc. 118 mg/dL; Protein, Total 6.5 g/dL (5.9-8.4); Sodium Level 142 mmol/L (133-145); Triglycerides 105 mg/dL; Very Low Density Lipoprotein 21 mg/dL (5-40); Vitamin D,25 Hydroxy 45.5 ng/mL (30-100); cholesterol:hdl ratio screen 3.75
== END | disposition home or self-care (01) ==
LOC: LAB 09:09
PROVIDERS: PCP Family Medicine; Referring Provider Family Medicine; Visit Provider Family Medicine
DX: E03.9 Hypothyroidism, unspecified (principal); R73.01 Impaired fasting glucose; K21.9 Gastro-esophageal reflux disease without esophagitis
CPT/HCPCS: 36415; 80053; 80061; 82306; 84439; 84443